=== PATIENT | female | born 1945 | race Caucasian/White ===

== ENCOUNTER 2016-11-19 18:08 | Inpatient (IN) | payer MEDICARE, MEDICAID ==
[~2016-11-19] VITALS: Ht 160 cm; Wt 60.0 kg
[~2016-11-19 18:08] MED LIST: CALC-112 PO; CARI350T14 PO; CHLO25TA PO; CLOR7.5T PO; DULO60CA7 PO; ENAL20TA PO; ESTR1TAB15 PO; FEXO180T5 PO; FLUT1DIS IH; GABA300C10 PO; HYDR-3144 PO; INTE30DI IM; LEVO25TA2 PO; LOVA40TA2 PO; METH5TAB2 PO; MODA200T12 PO; OMEP40CA6 PO; SOLI10TA PO; SUCR1TAB PO; TRAM50TA2 PO
[2016-11-19] MEDS ORDERED: MORPHINE SULFATE 4 MG/ML, 1ML IVPush PRN (18:30)
[2016-11-19] MEDS ORDERED: SODIUM CHLORIDE 0.9% 1,000ML IV ONE (18:30)
[2016-11-19] MEDS ORDERED: SODIUM CHLORIDE FLUSH 10ML SYR IVF ONE (18:30)
[2016-11-19] MEDS ORDERED: ONDANSETRON 2MG/ML, 2ML IVPush ONE (18:30)
[2016-11-19 18:46] LABS: HEMOGLOBIN 9.4 g/dL (11.7-16.4)
[2016-11-19] MEDS ORDERED: ONDANSETRON 2MG/ML, 2ML ONE (18:51)
[2016-11-19] MEDS ORDERED: MORPHINE SULFATE 4 MG/ML, 1ML ONE ×2 (18:51→19:51)
[2016-11-19 18:55] LABS: ASPARTATE AMINO TRANSFERASE 14 U/L (15-37); BLOOD UREA NITROGEN 25 mg/dL (7-18)
[2016-11-19] MEDS ORDERED: HYDROmorphone 1 MG/ML, 1ML ONE (19:58)
[2016-11-19] MEDS ORDERED: CEFTRIAXONE PMX 1GM/50ML 50 ML ONE (20:29)
[2016-11-19] MEDS ORDERED: HYDROmorphone 1 MG/ML, 1ML IVPush PRN ×2 (20:30→21:00)
[2016-11-19] MEDS ORDERED: CEFTRIAXONE PMX 1GM/50ML 50 ML IVPB ONE (20:30)
[2016-11-19] MEDS ORDERED: SODIUM CHLORIDE FLUSH 10ML SYR IVF PRN (21:00)
[2016-11-19] MEDS ORDERED: ONDANSETRON 2MG/ML, 2ML IVPush PRN (21:00)
[2016-11-19] MEDS ORDERED: ACETAMINOPHEN 325 MG TABLET PO PRN (22:00)
[2016-11-19] MEDS ORDERED: ONDANSETRON 2MG/ML, 2ML IVP PRN (22:00)
[2016-11-19] MEDS: CEFTRIAXONE PMX 1GM/50ML 50 ML IV SCH (22:00)
[2016-11-19] MEDS: SODIUM CHLORIDE 0.9% 1,000 ML IV SCH (23:01)
[2016-11-20] MEDS: MORPHINE SULFATE 4 MG/ML, 1ML IVPush PRN ×4 (00:32→14:19)
[2016-11-20 02:29] LABS: HEMOGLOBIN 9.3 g/dL (11.7-16.4)
[2016-11-20 04:22] VITALS: BP 147/47
[2016-11-20] MEDS: LEVOTHYROXINE 25 MCG TABLET PO SCH (05:43)
[2016-11-20] MEDS: CALCIUM/VITAMIN D3 250-125 TABLET PO SCH ×4 (05:43→21:16)
[2016-11-20] MEDS: SUCRALFATE 1 GM TABLET PO SCH ×4 (05:43→21:16)
[2016-11-20 06:07] LABS: HEMOGLOBIN 9.3 g/dL (11.7-16.4)
[2016-11-20 06:27] LABS: ASPARTATE AMINO TRANSFERASE 14 U/L (15-37); BLOOD UREA NITROGEN 19 mg/dL (7-18)
[2016-11-20 08:18] VITALS: BP 137/90
[2016-11-20 08:18] LABS: HEMOGLOBIN 9.8 g/dL (11.7-16.4)
[2016-11-20] MEDS: CLORAZEPATE 7.5 MG TABLET PO SCH ×2 (09:00→21:00)
[2016-11-20] MEDS: FLUTICASONE/VILANTEROL 100-25MCG/INH INH SCH (09:00)
[2016-11-20] MEDS: MODAFINIL 100 MG TABLET PO SCH (09:00)
[2016-11-20] MEDS: METHADONE 5 MG TABLET PO SCH ×3 (09:00→21:00)
[2016-11-20] MEDS: CARISOPRODOL 350 MG TABLET PO SCH (09:00)
[2016-11-20] MEDS: DULOXETINE 30 MG CAPSULE.DR PO SCH (09:00)
[2016-11-20] MEDS: ENALAPRIL 20MG TABLET PO SCH (09:00)
[2016-11-20] MEDS: ESTRADIOL 1 MG TABLET PO SCH (09:00)
[2016-11-20] MEDS: GABAPENTIN 300 MG CAPSULE PO SCH ×3 (09:00→21:16)
[2016-11-20] MEDS: OMEPRAZOLE 20 MG CAPSULE.DR PO SCH (09:00)
[2016-11-20 14:33] LABS: HEMOGLOBIN 9.9 g/dL (11.7-16.4)
[2016-11-20 15:38] VITALS: BP 143/72
[2016-11-20] MEDS ORDERED: FENT-58 TD (16:28)
[2016-11-20] MEDS ORDERED: SPIR25TA3 PO (16:46)
[2016-11-20] MEDS ORDERED: DALF10TA PO (16:46)
[2016-11-20] MEDS ORDERED: TRAZ50TA18 PO (16:46)
[2016-11-20] MEDS ORDERED: LORA0.5T PO (16:46)
[2016-11-20] MEDS: SODIUM CHLORIDE 0.9% 1,000 ML IV SCH (17:34)
[2016-11-20] MEDS ORDERED: SPIRONOLACTONE 25 MG TABLET PO PRN (18:00)
[2016-11-20] MEDS: FENTANYL REMOVE PATCH NOTE XX SCH (18:30)
[2016-11-20 20:29] VITALS: BP 114/65
[2016-11-20] MEDS: FENTANYL 50 MCG PATCH TD SCH (21:13)
[2016-11-20] MEDS: CEFTRIAXONE PMX 1GM/50ML 50 ML IV SCH (21:16)
[2016-11-20] MEDS: LOVASTATIN 40 MG TABLET PO SCH (21:16)
[2016-11-20] MEDS: TRAZODONE 50MG TABLET PO PRN (21:16)
[2016-11-20] MEDS ORDERED: LORazepam 1MG TABLET PO ONE (23:30)
[2016-11-21 02:00] VITALS: BP 133/75
[2016-11-21 03:30] VITALS: BP 131/81
[2016-11-21] MEDS: SUCRALFATE 1 GM TABLET PO SCH ×4 (05:23→22:24)
[2016-11-21] MEDS: LEVOTHYROXINE 25 MCG TABLET PO SCH (05:23)
[2016-11-21] MEDS: CALCIUM/VITAMIN D3 250-125 TABLET PO SCH ×4 (05:43→22:24)
[2016-11-21 05:50] LABS: HEMOGLOBIN 8.9 g/dL (11.7-16.4)
[2016-11-21 06:49] VITALS: BP 123/77
[2016-11-21] MEDS: MODAFINIL 100 MG TABLET PO SCH (09:52)
[2016-11-21] MEDS: DULOXETINE 30 MG CAPSULE.DR PO SCH (09:52)
[2016-11-21] MEDS: FLUTICASONE/VILANTEROL 100-25MCG/INH INH SCH (09:52)
[2016-11-21] MEDS: ESTRADIOL 1 MG TABLET PO SCH (09:52)
[2016-11-21] MEDS: METHADONE 5 MG TABLET PO SCH ×3 (09:52→22:28)
[2016-11-21] MEDS: GABAPENTIN 300 MG CAPSULE PO SCH ×3 (09:52→22:25)
[2016-11-21] MEDS: OMEPRAZOLE 20 MG CAPSULE.DR PO SCH (09:52)
[2016-11-21] MEDS: ENALAPRIL 20MG TABLET PO SCH (09:53)
[2016-11-21] MEDS: CARISOPRODOL 350 MG TABLET PO SCH (09:53)
[2016-11-21] MEDS: CLORAZEPATE 7.5 MG TABLET PO SCH ×2 (09:53→21:00)
[2016-11-21] MEDS ORDERED: PROPOFOL 10 MG/ML, 20ML ONE (10:36)
[2016-11-21] MEDS ORDERED: DEXAMETHASONE 4 MG/ML, 1ML ONE (10:36)
[2016-11-21] MEDS ORDERED: ONDANSETRON 2MG/ML, 2ML ONE (10:36)
[2016-11-21 13:29] VITALS: BP 112/67
[2016-11-21] MEDS: SODIUM CHLORIDE 0.9% 1,000 ML IV SCH ×2 (13:40→22:24)
[2016-11-21] MEDS ORDERED: FENTANYL PF 250 MCG/5ML ONE (15:21)
[2016-11-21] MEDS ORDERED: MIDAZOLAM 1 MG/ML, 2ML ONE (15:21)
[2016-11-21] MEDS ORDERED: ONDANSETRON 2MG/ML, 2ML IVPush PRN (16:30)
[2016-11-21] MEDS ORDERED: HYDROmorphone 1 MG/ML, 1ML IV PRN (16:30)
[2016-11-21] MEDS ORDERED: ALBUTEROL SULFATE 2.5 MG/3 ML NPPB PRN (16:30)
[2016-11-21] MEDS ORDERED: MIDAZOLAM 1 MG/ML, 2ML IV PRN (16:30)
[2016-11-21] MEDS ORDERED: LABETALOL 5MG/ML, 20ML IV PRN (16:30)
[2016-11-21] MEDS ORDERED: METOPROLOL 1 MG/ML, 5ML IV PRN (16:30)
[2016-11-21] MEDS ORDERED: OXYcodone 5 MG/5 ML ORAL.SOL UDC PO PRN (16:30)
[2016-11-21] MEDS ORDERED: hydrALAzine 20 MG/ML, 1ML IV PRN (16:30)
[2016-11-21] MEDS ORDERED: ACETAMINOPHEN 325 MG TABLET PO PRN (16:30)
[2016-11-21] MEDS ORDERED: EPHEDRINE 50 MG/ML, 1ML IVPush PRN (16:30)
[2016-11-21] MEDS ORDERED: FENTANYL PF 100 MCG/2ML IV PRN (16:30)
[2016-11-21] MEDS ORDERED: OXYcodone 5 MG/5 ML ORAL.SOL UDC ONE (16:47)
[2016-11-21 18:34] VITALS: BP 139/75
[2016-11-21] MEDS: HYDROcodone/APAP 5/325 TABLET PO PRN ×2 (22:23→23:50)
[2016-11-21] MEDS: CEFTRIAXONE PMX 1GM/50ML 50 ML IV SCH (22:24)
[2016-11-21] MEDS: LOVASTATIN 40 MG TABLET PO SCH (22:24)
[2016-11-21] MEDS: TRAZODONE 50MG TABLET PO PRN (23:09)
[2016-11-22 00:25] VITALS: BP 112/63
[2016-11-22 03:40] VITALS: BP 116/59
[2016-11-22] MEDS: LEVOTHYROXINE 25 MCG TABLET PO SCH (05:33)
[2016-11-22] MEDS: CALCIUM/VITAMIN D3 250-125 TABLET PO SCH ×4 (05:33→20:25)
[2016-11-22] MEDS: SUCRALFATE 1 GM TABLET PO SCH ×4 (05:33→20:25)
[2016-11-22] MEDS: HYDROcodone/APAP 5/325 TABLET PO PRN ×4 (05:39→22:26)
[2016-11-22 06:13] LABS: BLOOD UREA NITROGEN 12 mg/dL (7-18)
[2016-11-22 08:06] LABS: ANISOCYTOSIS 1+; HYPOCHROMIA 1+; MICROCYTOSIS 1+; POIKILOCYTOSIS 1+
[2016-11-22 08:48] VITALS: BP 116/67
[2016-11-22] MEDS: MODAFINIL 100 MG TABLET PO SCH (08:51)
[2016-11-22] MEDS: GABAPENTIN 300 MG CAPSULE PO SCH ×3 (08:51→20:25)
[2016-11-22] MEDS: FLUTICASONE/VILANTEROL 100-25MCG/INH INH SCH (08:51)
[2016-11-22] MEDS: CARISOPRODOL 350 MG TABLET PO SCH (08:52)
[2016-11-22] MEDS: OMEPRAZOLE 20 MG CAPSULE.DR PO SCH (08:52)
[2016-11-22] MEDS: ENALAPRIL 20MG TABLET PO SCH (08:52)
[2016-11-22] MEDS: ESTRADIOL 1 MG TABLET PO SCH (08:52)
[2016-11-22] MEDS: DULOXETINE 30 MG CAPSULE.DR PO SCH (08:52)
[2016-11-22] MEDS: CLORAZEPATE 7.5 MG TABLET PO SCH ×2 (08:53→20:23)
[2016-11-22] MEDS: METHADONE 5 MG TABLET PO SCH ×2 (08:54→16:00)
[2016-11-22 14:30] VITALS: BP 105/66
[2016-11-22 19:24] VITALS: BP 112/64
[2016-11-22] MEDS: ONDANSETRON ODT 4 MG PO PRN (20:25)
[2016-11-22] MEDS: LOVASTATIN 40 MG TABLET PO SCH (20:25)
[2016-11-22] MEDS: CEFTRIAXONE PMX 1GM/50ML 50 ML IV SCH (22:26)
[2016-11-22] MEDS: TRAZODONE 50MG TABLET PO PRN (22:53)
[2016-11-23] MEDS: HYDROcodone/APAP 5/325 TABLET PO PRN ×5 (02:31→20:11)
[2016-11-23 02:34] VITALS: BP 108/66
[2016-11-23] MEDS: ONDANSETRON ODT 4 MG PO PRN (03:24)
[2016-11-23] MEDS: SUCRALFATE 1 GM TABLET PO SCH ×4 (05:19→20:11)
[2016-11-23] MEDS: LEVOTHYROXINE 25 MCG TABLET PO SCH (05:19)
[2016-11-23] MEDS: CALCIUM/VITAMIN D3 250-125 TABLET PO SCH ×4 (05:19→20:12)
[2016-11-23 05:52] LABS: BLOOD UREA NITROGEN 18 mg/dL (7-18)
[2016-11-23 08:10] VITALS: BP 104/67
[2016-11-23] MEDS: SODIUM CHLORIDE 0.9% 1,000 ML IV SCH (08:21)
[2016-11-23] MEDS: FLUTICASONE/VILANTEROL 100-25MCG/INH INH SCH (08:21)
[2016-11-23] MEDS: CLORAZEPATE 7.5 MG TABLET PO SCH ×2 (08:23→20:12)
[2016-11-23] MEDS: CARISOPRODOL 350 MG TABLET PO SCH (08:24)
[2016-11-23] MEDS: ENALAPRIL 20MG TABLET PO SCH (08:24)
[2016-11-23] MEDS: ESTRADIOL 1 MG TABLET PO SCH (08:25)
[2016-11-23] MEDS: DULOXETINE 30 MG CAPSULE.DR PO SCH (08:25)
[2016-11-23] MEDS: GABAPENTIN 300 MG CAPSULE PO SCH ×3 (08:25→20:11)
[2016-11-23] MEDS: OMEPRAZOLE 20 MG CAPSULE.DR PO SCH (08:25)
[2016-11-23] MEDS: MODAFINIL 100 MG TABLET PO SCH (08:25)
[2016-11-23 14:15] VITALS: BP 95/64
[2016-11-23] MEDS ORDERED: CEFD300C2 PO (15:19)
[2016-11-23] MEDS: FENTANYL REMOVE PATCH NOTE XX SCH (18:29)
[2016-11-23] MEDS: FENTANYL 50 MCG PATCH TD SCH (18:29)
[2016-11-23] MEDS: CEFDINIR 300 MG CAPSULE PO SCH (20:11)
[2016-11-23] MEDS: LOVASTATIN 40 MG TABLET PO SCH (20:11)
[2016-11-23 20:28] VITALS: BP 95/61
[2016-11-23] MEDS: TRAZODONE 50MG TABLET PO PRN (21:42)
[2016-11-24 03:31] VITALS: BP 125/72
[2016-11-24] MEDS: SODIUM CHLORIDE 0.9% 1,000 ML IV SCH (04:27)
[2016-11-24] MEDS: CALCIUM/VITAMIN D3 250-125 TABLET PO SCH ×4 (05:53→21:49)
[2016-11-24] MEDS: SUCRALFATE 1 GM TABLET PO SCH ×4 (05:54→21:49)
[2016-11-24] MEDS: LEVOTHYROXINE 25 MCG TABLET PO SCH (05:54)
[2016-11-24 06:34] VITALS: BP 126/71
[2016-11-24] MEDS: HYDROcodone/APAP 5/325 TABLET PO PRN ×2 (07:42→14:24)
[2016-11-24] MEDS: FLUTICASONE/VILANTEROL 100-25MCG/INH INH SCH (09:00)
[2016-11-24] MEDS: CLORAZEPATE 7.5 MG TABLET PO SCH ×2 (09:00→20:57)
[2016-11-24] MEDS: MODAFINIL 100 MG TABLET PO SCH (09:00)
[2016-11-24] MEDS: ENALAPRIL 20MG TABLET PO SCH (09:20)
[2016-11-24] MEDS: OMEPRAZOLE 20 MG CAPSULE.DR PO SCH (09:20)
[2016-11-24] MEDS: GABAPENTIN 300 MG CAPSULE PO SCH ×3 (09:20→21:49)
[2016-11-24] MEDS: CARISOPRODOL 350 MG TABLET PO SCH (09:20)
[2016-11-24] MEDS: DULOXETINE 30 MG CAPSULE.DR PO SCH (09:20)
[2016-11-24] MEDS: ESTRADIOL 1 MG TABLET PO SCH (09:20)
[2016-11-24] MEDS: CEFDINIR 300 MG CAPSULE PO SCH ×2 (09:20→21:49)
[2016-11-24 12:57] VITALS: BP 108/67
[2016-11-24] MEDS: metroNIDAZOLE 500 MG TABLET PO SCH ×3 (14:23→21:49)
[2016-11-24 19:06] VITALS: BP 95/59
[2016-11-24] MEDS: LOVASTATIN 40 MG TABLET PO SCH (21:49)
[2016-11-24] MEDS: TRAZODONE 50MG TABLET PO PRN (21:49)
[2016-11-25] MEDS: SODIUM CHLORIDE 0.9% 1,000 ML IV SCH ×2 (01:00→21:00)
[2016-11-25 02:27] VITALS: BP 96/56
[2016-11-25] MEDS: HYDROcodone/APAP 5/325 TABLET PO PRN ×5 (02:36→21:36)
[2016-11-25] MEDS: LEVOTHYROXINE 25 MCG TABLET PO SCH (05:22)
[2016-11-25] MEDS: CALCIUM/VITAMIN D3 250-125 TABLET PO SCH ×4 (05:22→20:04)
[2016-11-25] MEDS: SUCRALFATE 1 GM TABLET PO SCH ×4 (05:22→20:04)
[2016-11-25 07:43] VITALS: BP 101/62
[2016-11-25] MEDS: OMEPRAZOLE 20 MG CAPSULE.DR PO SCH (09:00)
[2016-11-25] MEDS: ENALAPRIL 20MG TABLET PO SCH (09:00)
[2016-11-25] MEDS: CLORAZEPATE 7.5 MG TABLET PO SCH ×2 (09:00→21:00)
[2016-11-25] MEDS: CEFDINIR 300 MG CAPSULE PO SCH ×2 (09:00→20:04)
[2016-11-25] MEDS: MODAFINIL 100 MG TABLET PO SCH (09:00)
[2016-11-25] MEDS: DULOXETINE 30 MG CAPSULE.DR PO SCH (09:53)
[2016-11-25] MEDS: GABAPENTIN 300 MG CAPSULE PO SCH ×3 (09:53→20:04)
[2016-11-25] MEDS: LACTOBACILLUS CHEW TABLET PO SCH ×3 (09:54→20:04)
[2016-11-25] MEDS: ESTRADIOL 1 MG TABLET PO SCH (09:54)
[2016-11-25] MEDS: metroNIDAZOLE 500 MG TABLET PO SCH ×3 (09:54→20:04)
[2016-11-25] MEDS: CARISOPRODOL 350 MG TABLET PO SCH (09:55)
[2016-11-25] MEDS: FLUTICASONE/VILANTEROL 100-25MCG/INH INH SCH (11:53)
[2016-11-25 12:46] VITALS: BP 95/61
[2016-11-25 19:30] VITALS: BP 110/69
[2016-11-25] MEDS: LOVASTATIN 40 MG TABLET PO SCH (20:04)
[2016-11-25] MEDS: TRAZODONE 50MG TABLET PO PRN (20:04)
[2016-11-26] MEDS: HYDROcodone/APAP 5/325 TABLET PO PRN ×5 (01:49→20:13)
[2016-11-26 03:15] VITALS: BP 108/68
[2016-11-26] MEDS: LEVOTHYROXINE 25 MCG TABLET PO SCH (06:08)
[2016-11-26] MEDS: CALCIUM/VITAMIN D3 250-125 TABLET PO SCH ×4 (06:08→20:13)
[2016-11-26] MEDS: SUCRALFATE 1 GM TABLET PO SCH ×4 (06:08→20:12)
[2016-11-26 07:50] VITALS: BP 108/68
[2016-11-26] MEDS: metroNIDAZOLE 500 MG TABLET PO SCH ×3 (08:41→20:12)
[2016-11-26] MEDS: GABAPENTIN 300 MG CAPSULE PO SCH ×3 (08:41→20:12)
[2016-11-26] MEDS: CEFDINIR 300 MG CAPSULE PO SCH (08:41)
[2016-11-26] MEDS: LACTOBACILLUS CHEW TABLET PO SCH ×3 (08:41→20:14)
[2016-11-26] MEDS: ESTRADIOL 1 MG TABLET PO SCH (08:41)
[2016-11-26] MEDS: DULOXETINE 30 MG CAPSULE.DR PO SCH (08:41)
[2016-11-26] MEDS: CARISOPRODOL 350 MG TABLET PO SCH (08:42)
[2016-11-26] MEDS: MODAFINIL 100 MG TABLET PO SCH (08:42)
[2016-11-26] MEDS: ENALAPRIL 20MG TABLET PO SCH (08:42)
[2016-11-26] MEDS: CLORAZEPATE 7.5 MG TABLET PO SCH (08:43)
[2016-11-26] MEDS: FLUTICASONE/VILANTEROL 100-25MCG/INH INH SCH (08:43)
[2016-11-26 12:44] LABS: BLOOD UREA NITROGEN 17 mg/dL (7-18)
[2016-11-26 15:16] VITALS: BP 110/68
[2016-11-26] MEDS: SODIUM CHLORIDE 0.9% 1,000 ML IV SCH (16:17)
[2016-11-26] MEDS: FENTANYL REMOVE PATCH NOTE XX SCH (18:10)
[2016-11-26] MEDS: FENTANYL 50 MCG PATCH TD SCH (18:10)
[2016-11-26 19:05] VITALS: BP 124/77
[2016-11-26] MEDS: LOVASTATIN 40 MG TABLET PO SCH (20:12)
[2016-11-26] MEDS ORDERED: CEFDINIR 300 MG CAPSULE PO SCH (21:00)
[2016-11-27] MEDS: HYDROcodone/APAP 5/325 TABLET PO PRN ×5 (01:10→18:34)
[2016-11-27 02:37] VITALS: BP 137/83
[2016-11-27 02:39] VITALS: BP 137/83
[2016-11-27] MEDS: CALCIUM/VITAMIN D3 250-125 TABLET PO SCH ×3 (05:46→18:35)
[2016-11-27] MEDS: SUCRALFATE 1 GM TABLET PO SCH ×3 (05:46→18:35)
[2016-11-27] MEDS: LEVOTHYROXINE 25 MCG TABLET PO SCH (05:46)
[2016-11-27 06:43] VITALS: BP 123/73
[2016-11-27] MEDS: FLUTICASONE/VILANTEROL 100-25MCG/INH INH SCH (09:53)
[2016-11-27] MEDS: DULOXETINE 30 MG CAPSULE.DR PO SCH (09:55)
[2016-11-27] MEDS: ESTRADIOL 1 MG TABLET PO SCH (09:56)
[2016-11-27] MEDS: LACTOBACILLUS CHEW TABLET PO SCH ×2 (09:56→18:35)
[2016-11-27] MEDS: metroNIDAZOLE 500 MG TABLET PO SCH ×2 (09:56→18:35)
[2016-11-27] MEDS: GABAPENTIN 300 MG CAPSULE PO SCH ×2 (09:57→18:35)
[2016-11-27] MEDS: MODAFINIL 100 MG TABLET PO SCH (09:57)
[2016-11-27] MEDS: CARISOPRODOL 350 MG TABLET PO SCH (09:58)
[2016-11-27] MEDS: ENALAPRIL 20MG TABLET PO SCH (09:59)
[2016-11-27] MEDS ORDERED: ACID1TAB7 PO (12:02)
[2016-11-27] MEDS ORDERED: METR500T PO (12:02)
[2016-11-27] MEDS: SODIUM CHLORIDE 0.9% 1,000 ML IV SCH (13:00)
[2016-11-27] MEDS ORDERED: INTERFERON BETA 30 MCG IM ONE (14:30)
== END 2016-11-27 20:38 | DRG 690 ==
LOC: ED 20:02 → EDIP 20:53 → 3NE 11-20 → ORIP 11-21 16:21 → 4NOR 11-21 18:05
PROVIDERS: ADMIT Internal Medicine; ATTEND Internal Medicine
PROC: 0T9B70Z Drainage of Bladder with Drainage Device, Via Natural or Artificial Opening (ICD-10-PCS; principal; 2016-11-19)
PROC: 0TCB8ZZ Extirpation of Matter from Bladder, Via Natural or Artificial Opening Endoscopic (ICD-10-PCS; 2016-11-21)
DX: N30.01 Acute cystitis with hematuria (principal); A04.7 Enterocolitis due to Clostridium difficile; E87.1 Hypo-osmolality and hyponatremia; D62 Acute posthemorrhagic anemia; R10.2 Pelvic and perineal pain; E03.9 Hypothyroidism, unspecified; F41.9 Anxiety disorder, unspecified; G35 Multiple sclerosis; G89.29 Other chronic pain; I10 Essential (primary) hypertension; K21.9 Gastro-esophageal reflux disease without esophagitis; K44.9 Diaphragmatic hernia without obstruction or gangrene; K58.9 Irritable bowel syndrome, unspecified; N31.9 Neuromuscular dysfunction of bladder, unspecified; N32.89 Other specified disorders of bladder; Z82.3 Family history of stroke; Z87.440 Personal history of urinary (tract) infections; Z87.891 Personal history of nicotine dependence; Z90.49 Acquired absence of other specified parts of digestive tract; Z90.710 Acquired absence of both cervix and uterus; Z88.0 Allergy status to penicillin; Z88.1 Allergy status to other antibiotic agents; Z88.8 Allergy status to other drugs, medicaments and biological substances
CPT/HCPCS: 36415; 51702; 74176; 80048; 80053; 81001; 82040; 85014; 85018; 85025; 85610; 87086; 87324; 93005; 96361; 96365; 96366; 96375; J0696; J1100; J1170; J2250; J2405; J2704; J3010; Q0162

== ENCOUNTER 2019-02-01 11:44 | Inpatient (IN) | payer MEDICARE, MEDICAID ==
[~2019-02-01] VITALS: Ht 160 cm; Wt 54.9 kg
[~2019-02-01 11:44] MED LIST changes: +ACID1TAB7 PO; +CEFD300C37 PO; +DALF10TA PO; +FENT-58 TD; +FEXO180T15 PO; -FEXO180T5 PO; -HYDR-3144 PO; +HYDR-3245 PO; +LORA0.5T PO; +METR500T PO; -MODA200T12 PO; +MODA200T27 PO; -SOLI10TA PO; +SOLI10TA2 PO; +SPIR25TA5 PO; +TRAZ50TA66 PO
--- NOTE | 2019-02-01 12:28 | NUR ---
OFF FLOOR TO RADIOLOGY
[2019-02-01] MEDS ORDERED: DIPH,PERTUSS(ACELL),TET VAC/PF 0.5 ML IM-VACC ONE ×2 (12:30→13:06)
[2019-02-01] MEDS ORDERED: SODIUM CHLORIDE FLUSH 10ML SYR IVF ONE (12:30)
[2019-02-01] MEDS ORDERED: BACITRACIN ZINC OINT 500U/GM, 0.9 GM ONE (12:52)
[2019-02-01 13:15] LABS: MEAN CORPUSCULAR HEMOGLOBIN 24.1 pg (27.0-34.8); MEAN CORPUSCULAR HGB CONC 31.6 g/dL (32.4-35.8); MEAN CORPUSCULAR VOLUME 76.4 fL (80-100); MEAN PLATELET VOLUME 7.7 fL (7.4-10.4); PLATELET COUNT 563 x10^3/uL (130-400); RED CELL DISTRIBUTION WIDTH 25.1 % (9.6-15.2)
[2019-02-01 13:20] LABS: ALBUMIN 3.5 g/dL (3.4-5.0); ANION GAP 8 mmol/L (5-15); CALCIUM 8.9 mg/dL (8.5-10.1); CHLORIDE 111 mmol/L (98-107)
[2019-02-01 13:24] LABS: ALANINE AMINOTRANSFERASE 50 U/L (12-78); ALKALINE PHOSPHATASE 108 U/L (45-117); BILIRUBIN,TOTAL 0.2 mg/dL (0.2-1.0); CREATININE 0.77 mg/dL (0.55-1.02); TOTAL PROTEIN 7.9 g/dL (6.4-8.2)
[2019-02-01 13:31] LABS: MD YES
[2019-02-01 13:33] LABS: LYMPH#(MANUAL) 1.62 x10^3/uL (1-3.4); LYMPHS% (MANUAL) 30 % (22-44); MONOS#(MANUAL) 0.27 x10^3/uL (0.3-2.7); MONOS% (MANUAL) 5 % (2-9); SEG#(MANUAL) 3.51 x10^3/uL (1.8-6.8); SEGS% (MANUAL) 65 % (42-75)
[2019-02-01 13:34] LABS: ANISOCYTOSIS 2+
[2019-02-01 13:35] LABS: HYPOCHROMIA 2+; MICROCYTOSIS 1+; OVALOCYTES 1+; POLYCHROMASIA 1+
[2019-02-01 13:36] LABS: <PLATELET ESTIMATE> INCREASED; <PLT MORPHOLOGY> NORMAL PLT MORPH; TEAR DROPS 1+
--- NOTE | 2019-02-01 13:42 | NUR ---
STRAIGHT CATH URINE SAMPLE OBTAINED. PT THEN ON PHONE LEAVING MESSAGE WITH SON. PT HAD BEEN CONVERSING WITH RN. THEN PT SAID "HERE COME THE SHAKES" AND THEN STARING OUT, NOT RESPONSIVE VERBALLY. MD BROUGHT TO BEDSIDE AND PT STILL EXPERIENCING THE EPISODE AT THIS TIME. THEN PT AGAIN BECAME RESPONSIVE, TALKING TO STAFF. TECH AT BESIDE DRESSING BILATERAL ARM WOUNDS.
[2019-02-01 13:58] LABS: CULTURE INDICATED? YES; MICROSCOPIC INDICATED
[2019-02-01] MEDS ORDERED: CEFTRIAXONE PMX 1GM/50ML 50 ML IV ONE (15:00)
[2019-02-01] MEDS ORDERED: SODIUM CHLORIDE FLUSH 10ML SYR IVF PRN (15:00)
--- NOTE | 2019-02-01 15:00 | NUR ---
hospitalist at bedside examining pt.
[2019-02-01] MEDS ORDERED: LORazepam 0.5MG TABLET PO PRN (15:30)
[2019-02-01] MEDS ORDERED: TRAZODONE 50MG TABLET PO PRN (15:30)
[2019-02-01] MEDS ORDERED: ONDANSETRON ODT 4 MG PO PRN (15:30)
[2019-02-01] MEDS ORDERED: ONDANSETRON 2MG/ML, 2ML IVPush PRN (15:30)
[2019-02-01] MEDS ORDERED: LABETALOL 5 MG/ML SYRINGE IVPush PRN (15:30)
[2019-02-01 16:01] LABS: FREE T4 (FREE THYROXINE) 0.97 ng/dL (0.76-1.46)
[2019-02-01] MEDS ORDERED: CEFTRIAXONE PMX 1GM/50ML 50 ML ONE (16:18)
--- NOTE | 2019-02-01 16:30 | NUR ---
REPORT TO AUGUSTA STERLING. PT TO BE TRANSPORTED VIA [facility] ON MONITOR TO FLOOR
[2019-02-01 17:30] VITALS: BP 161/79
[2019-02-01] MEDS: GABAPENTIN 300 MG CAPSULE PO SCH ×2 (18:42→22:06)
[2019-02-01] MEDS: SUCRALFATE 1 GM TABLET PO SCH ×2 (18:42→22:06)
[2019-02-01] MEDS: HYDROcodone/APAP 10/325 MG TABLET PO SCH ×2 (18:42→22:07)
[2019-02-01] MEDS: ENOXAPARIN 40 MG/0.4 ML SQ SCH (18:42)
[2019-02-01 18:52] VITALS: BP 155/75
[2019-02-01] MEDS: DEXTROSE 50%, 50ML SYRINGE IVPush PRN ×2 (20:30→20:40)
[2019-02-01] MEDS ORDERED: GLUCAGON 1 MG IM PRN (20:30)
[2019-02-01] MEDS ORDERED: DEXTROSE 4 GM TAB.CHEW PO PRN (20:30)
[2019-02-01] MEDS ORDERED: D5%-0.9% NACL 1,000 ML IV ONE (20:30)
[2019-02-01] MEDS ORDERED: DEXTROSE 50%, 50ML SYRINGE IVPush ONE (20:30)
[2019-02-01] MEDS: CEFTRIAXONE PMX 1GM/50ML 50 ML IV SCH (22:00)
[2019-02-01] MEDS: CLORAZEPATE 7.5 MG TABLET PO SCH (22:06)
[2019-02-01] MEDS: SODIUM CHLORIDE FLUSH 10ML SYR IVF SCH (22:06)
[2019-02-01] MEDS: LOVASTATIN 40 MG TABLET PO SCH (22:07)
[2019-02-01] MEDS ORDERED: FENTANYL 50 MCG PATCH TD PRN (23:30)
[2019-02-02 00:48] VITALS: BP 97/57
[2019-02-02 05:18] VITALS: BP 116/63
[2019-02-02 05:21] LABS: CHLORIDE 110 mmol/L (98-107)
[2019-02-02 05:25] LABS: MEAN CORPUSCULAR HEMOGLOBIN 24.6 pg (27.0-34.8); MEAN CORPUSCULAR HGB CONC 32.1 g/dL (32.4-35.8); MEAN CORPUSCULAR VOLUME 76.6 fL (80-100); MEAN PLATELET VOLUME 7.7 fL (7.4-10.4); PLATELET COUNT 445 x10^3/uL (130-400); RED BLOOD COUNT 3.88 x10^6/uL (3.82-5.3); RED CELL DISTRIBUTION WIDTH 25.1 % (9.6-15.2)
[2019-02-02] MEDS: SUCRALFATE 1 GM TABLET PO SCH ×4 (05:29→21:27)
[2019-02-02] MEDS: LEVOTHYROXINE 25 MCG TABLET PO SCH (05:29)
[2019-02-02] MEDS: HYDROcodone/APAP 10/325 MG TABLET PO SCH ×4 (05:29→22:07)
[2019-02-02 05:37] LABS: ALANINE AMINOTRANSFERASE 37 U/L (12-78); ALKALINE PHOSPHATASE 87 U/L (45-117); ANION GAP 6 mmol/L (5-15); CALCIUM 8.4 mg/dL (8.5-10.1); CREATININE 0.96 mg/dL (0.55-1.02); TOTAL PROTEIN 6.6 g/dL (6.4-8.2)
[2019-02-02 05:39] LABS: BILIRUBIN,TOTAL < 0.1 mg/dL (0.2-1.0)
[2019-02-02] MEDS: D5%-0.9% NACL 1,000 ML IV SCH ×2 (05:55→19:07)
[2019-02-02] MEDS ORDERED: DEXTROSE 50%, 50ML SYRINGE IVPush ONE (06:00)
[2019-02-02 06:26] LABS: MD YES
[2019-02-02 06:28] LABS: ANISOCYTOSIS 2+; BAND#(MANUAL) 0.05 x10^3/uL; BANDS%(MANUAL) 1 % (0-7); BASOS#(MANUAL) 0.05 x10^3/uL (0-0.1); BASOS% (MANUAL) 1 % (0-1); EOS#(MANUAL) 0.24 x10^3/uL (0.0-0.4); EOS% (MANUAL) 5 % (1-7); LYMPH#(MANUAL) 1.92 x10^3/uL (1-3.4); LYMPHS% (MANUAL) 40 % (22-44); MICROCYTOSIS 1+; MONOS#(MANUAL) 0.29 x10^3/uL (0.3-2.7); MONOS% (MANUAL) 6 % (2-9); SEG#(MANUAL) 2.26 x10^3/uL (1.8-6.8); SEGS% (MANUAL) 47 % (42-75)
[2019-02-02 06:29] LABS: <PLATELET ESTIMATE> INCREASED; <PLT MORPHOLOGY> NORMAL PLT MORPH; OVALOCYTES 1+; POLYCHROMASIA 1+; TEAR DROPS 1+
[2019-02-02 06:34] LABS: HYPOCHROMIA 1+
[2019-02-02] MEDS ORDERED: FENTANYL REMOVE PATCH NOTE XX SCH (09:00)
[2019-02-02] MEDS ORDERED: FENTANYL 50 MCG PATCH TD SCH (09:00)
[2019-02-02] MEDS: CLORAZEPATE 7.5 MG TABLET PO SCH ×2 (09:14→21:27)
[2019-02-02] MEDS: ESTRADIOL 1 MG TABLET PO SCH (09:14)
[2019-02-02] MEDS: ENALAPRIL 20MG TABLET PO SCH (09:14)
[2019-02-02] MEDS: SODIUM CHLORIDE FLUSH 10ML SYR IVF SCH ×2 (09:15→21:27)
[2019-02-02] MEDS: GABAPENTIN 300 MG CAPSULE PO SCH ×3 (09:15→21:27)
[2019-02-02 12:10] VITALS: BP 98/54
--- NOTE | 2019-02-02 12:44 | NUR ---
HARM REDUCTION WORKER recommend: PUREE/ THINS -up for all meals -straws ok -meds as tolerated -alternate solids/liquids Addendum: 02/02/19 at [address] Amended: Links added.
[2019-02-02 18:12] VITALS: BP 124/49
[2019-02-02] MEDS: ENOXAPARIN 40 MG/0.4 ML SQ SCH (18:24)
[2019-02-02 18:28] VITALS: BP 119/69
[2019-02-02 19:00] VITALS: BP 117/62
[2019-02-02] MEDS: LOVASTATIN 40 MG TABLET PO SCH (21:27)
[2019-02-02] MEDS: CEFTRIAXONE PMX 1GM/50ML 50 ML IV SCH (21:29)
[2019-02-03 00:24] VITALS: BP 137/69
[2019-02-03] MEDS: LEVOTHYROXINE 25 MCG TABLET PO SCH (05:42)
[2019-02-03] MEDS: HYDROcodone/APAP 10/325 MG TABLET PO SCH ×4 (05:43→22:16)
[2019-02-03] MEDS: SUCRALFATE 1 GM TABLET PO SCH ×4 (05:43→22:16)
[2019-02-03] MEDS ORDERED: LINEZOLID 600 MG TABLET PO SCH (08:30)
[2019-02-03] MEDS: CLORAZEPATE 7.5 MG TABLET PO SCH ×2 (09:02→22:16)
[2019-02-03] MEDS: ESTRADIOL 1 MG TABLET PO SCH (09:02)
[2019-02-03] MEDS: SODIUM CHLORIDE FLUSH 10ML SYR IVF SCH ×2 (09:02→22:16)
[2019-02-03] MEDS: GABAPENTIN 300 MG CAPSULE PO SCH ×3 (09:02→22:16)
[2019-02-03] MEDS: ENALAPRIL 20MG TABLET PO SCH (09:02)
[2019-02-03 09:20] VITALS: BP 154/70
[2019-02-03] MEDS ORDERED: LINE600T33 PO (12:43)
[2019-02-03 14:34] VITALS: BP 153/76
[2019-02-03] MEDS ORDERED: NITR100C PO (16:25)
[2019-02-03] MEDS ORDERED: FOSFOMYCIN 3 GM PACKET PO ONE (18:00)
[2019-02-03] MEDS: SENNA/DOCUSATE TABLET PO PRN (18:04)
[2019-02-03] MEDS: ENOXAPARIN 40 MG/0.4 ML SQ SCH (18:43)
[2019-02-03] MEDS ORDERED: NITROFURANTOIN 50 MG CAPSULE PO SCH (21:00)
[2019-02-03 21:13] VITALS: BP 163/82
[2019-02-03] MEDS: LOVASTATIN 40 MG TABLET PO SCH (22:16)
[2019-02-04 02:35] VITALS: BP 176/76
[2019-02-04] MEDS: HYDROcodone/APAP 10/325 MG TABLET PO SCH ×3 (06:22→16:23)
[2019-02-04] MEDS: LEVOTHYROXINE 25 MCG TABLET PO SCH (06:23)
[2019-02-04] MEDS: SUCRALFATE 1 GM TABLET PO SCH ×3 (06:23→16:13)
[2019-02-04 07:09] VITALS: BP 129/70
[2019-02-04] MEDS: CLORAZEPATE 7.5 MG TABLET PO SCH (10:00)
[2019-02-04] MEDS: GABAPENTIN 300 MG CAPSULE PO SCH ×2 (10:00→16:13)
[2019-02-04] MEDS: ENALAPRIL 20MG TABLET PO SCH (10:00)
[2019-02-04] MEDS: SODIUM CHLORIDE FLUSH 10ML SYR IVF SCH (10:00)
[2019-02-04] MEDS: ESTRADIOL 1 MG TABLET PO SCH (10:00)
[2019-02-04] MEDS: SENNA/DOCUSATE TABLET PO PRN (10:52)
[2019-02-04 14:06] VITALS: BP 121/81
== END 2019-02-04 16:27 | DRG 689 ==
LOC: ED 14:52 → 4EST 15:18
PROVIDERS: ADMIT Internal Medicine; ATTEND Internal Medicine
PROC: 0T9B70Z Drainage of Bladder with Drainage Device, Via Natural or Artificial Opening (ICD-10-PCS; principal; 2019-02-01)
DX: N39.0 Urinary tract infection, site not specified (principal); E43 Unspecified severe protein-calorie malnutrition; G46.0 Middle cerebral artery syndrome; J98.11 Atelectasis; G35 Multiple sclerosis; Z88.0 Allergy status to penicillin; Z88.8 Allergy status to other drugs, medicaments and biological substances; Z68.21 Body mass index [BMI] 21.0-21.9, adult; D64.9 Anemia, unspecified; E03.9 Hypothyroidism, unspecified; E11.649 Type 2 diabetes mellitus with hypoglycemia without coma; F41.0 Panic disorder [episodic paroxysmal anxiety]; G89.29 Other chronic pain; I10 Essential (primary) hypertension; K21.9 Gastro-esophageal reflux disease without esophagitis; K44.9 Diaphragmatic hernia without obstruction or gangrene; K58.9 Irritable bowel syndrome, unspecified; K64.9 Unspecified hemorrhoids; N31.9 Neuromuscular dysfunction of bladder, unspecified; R13.19 Other dysphagia; R29.6 Repeated falls; R62.7 Adult failure to thrive; S50.12XA Contusion of left forearm, initial encounter; W06.XXXA Fall from bed, initial encounter; Y93.89 Activity, other specified; Y92.89 Other specified places as the place of occurrence of the external cause; Y99.8 Other external cause status; S60.511A Abrasion of right hand, initial encounter; Z86.73 Personal history of transient ischemic attack (TIA), and cerebral infarction without residual deficits
CPT/HCPCS: 36415; 70450; 71045; 72190; 80053; 81001; 82962; 83735; 84100; 84439; 84443; 85025; 87040; 87077; 87086; 87186; 90471; 90715; 93005; G0378; J0696; J1650; J7042; 92523-GN

== ENCOUNTER 2019-04-09 18:49 | Inpatient (IN) | payer MEDICARE, MEDICAID ==
[~2019-04-09] VITALS: Ht 160 cm; Wt 60.6 kg
[2019-04-20 13:48] VITALS: BP 146/83
== END 2019-04-20 15:58 | disposition home health service (06) | DRG 854 ==
LOC: ED 20:52 → EDIP 21:25 → 3NE 22:08
PROVIDERS: ADMIT Family Medicine; ATTEND Family Medicine
PROC: 0F778DZ Dilation of Common Hepatic Duct with Intraluminal Device, Via Natural or Artificial Opening Endoscopic (ICD-10-PCS; principal; 2019-04-13)
PROC: 0F7D8DZ Dilation of Pancreatic Duct with Intraluminal Device, Via Natural or Artificial Opening Endoscopic (ICD-10-PCS; 2019-04-13)
PROC: BF111ZZ Fluoroscopy of Biliary and Pancreatic Ducts using Low Osmolar Contrast (ICD-10-PCS; 2019-04-13)
PROC: 0T5B8ZZ Destruction of Bladder, Via Natural or Artificial Opening Endoscopic (ICD-10-PCS; 2019-04-15)
PROC: 0FC98ZZ Extirpation of Matter from Common Bile Duct, Via Natural or Artificial Opening Endoscopic (ICD-10-PCS; 2019-04-15)
PROC: 0TCB8ZZ Extirpation of Matter from Bladder, Via Natural or Artificial Opening Endoscopic (ICD-10-PCS; 2019-04-15)
PROC: 30233N1 Transfusion of Nonautologous Red Blood Cells into Peripheral Vein, Percutaneous Approach (ICD-10-PCS; 2019-04-16)
PROC: 0FPB8DZ Removal of Intraluminal Device from Hepatobiliary Duct, Via Natural or Artificial Opening Endoscopic (ICD-10-PCS; 2019-04-17)
PROC: BF111ZZ Fluoroscopy of Biliary and Pancreatic Ducts using Low Osmolar Contrast (ICD-10-PCS; 2019-04-17)
DX: A41.9 Sepsis, unspecified organism (principal); E87.1 Hypo-osmolality and hyponatremia; J98.11 Atelectasis; N39.0 Urinary tract infection, site not specified; K22.10 Ulcer of esophagus without bleeding; K80.50 Calculus of bile duct without cholangitis or cholecystitis without obstruction; B96.4 Proteus (mirabilis) (morganii) as the cause of diseases classified elsewhere; Z88.0 Allergy status to penicillin; Z88.8 Allergy status to other drugs, medicaments and biological substances; D64.9 Anemia, unspecified; E03.9 Hypothyroidism, unspecified; E11.9 Type 2 diabetes mellitus without complications; F41.0 Panic disorder [episodic paroxysmal anxiety]; F41.1 Generalized anxiety disorder; G35 Multiple sclerosis; G89.29 Other chronic pain; I10 Essential (primary) hypertension; K21.9 Gastro-esophageal reflux disease without esophagitis; Z79.890 Hormone replacement therapy; Z82.3 Family history of stroke; Z86.73 Personal history of transient ischemic attack (TIA), and cerebral infarction without residual deficits; Z87.11 Personal history of peptic ulcer disease; Z87.891 Personal history of nicotine dependence; Z90.49 Acquired absence of other specified parts of digestive tract; Z90.710 Acquired absence of both cervix and uterus; Z98.42 Cataract extraction status, left eye; K58.9 Irritable bowel syndrome, unspecified
CPT/HCPCS: 36415; 74177; 74181; 74328; 80048; 80053; 80076; 81001; 82247; 82248; 83690; 84145; 84443; 85025; 86850; 86900; 86923; 87077; 87086; 87186; 93005; 94640; 96374; 96375; 99285; G0378; J0690; J0696; J1100; J2250; J2405; J2704; J2710; J3010; J7613; J7626; Q9967; C1769; C1894; C2625; J0330; J0360; J2060; J2270; J7030; P9016

== ENCOUNTER 2019-05-09 12:59 | Inpatient (IN) | payer MEDICARE, MEDICAID ==
[~2019-05-09] VITALS: Ht 157.5 cm; Wt 61.9 kg
[2019-05-13 13:11] VITALS: BP 154/83
== END 2019-05-13 17:26 | disposition home health service (06) | DRG 100 ==
LOC: ED 15:59 → EDIP 17:20 → 4WST 18:30
PROVIDERS: ADMIT Hospitalist; ATTEND Hospitalist
DX: G40.89 Other seizures (principal); E43 Unspecified severe protein-calorie malnutrition; E87.1 Hypo-osmolality and hyponatremia; G35 Multiple sclerosis; D63.8 Anemia in other chronic diseases classified elsewhere; E03.9 Hypothyroidism, unspecified; E11.9 Type 2 diabetes mellitus without complications; K64.9 Unspecified hemorrhoids; K58.9 Irritable bowel syndrome, unspecified; K44.9 Diaphragmatic hernia without obstruction or gangrene; K21.9 Gastro-esophageal reflux disease without esophagitis; N31.9 Neuromuscular dysfunction of bladder, unspecified; E86.0 Dehydration; E87.6 Hypokalemia; F41.0 Panic disorder [episodic paroxysmal anxiety]; G89.29 Other chronic pain; Z60.2 Problems related to living alone; I10 Essential (primary) hypertension; Z82.3 Family history of stroke; Z79.899 Other long term (current) drug therapy; Z90.710 Acquired absence of both cervix and uterus; Z86.73 Personal history of transient ischemic attack (TIA), and cerebral infarction without residual deficits; Z98.42 Cataract extraction status, left eye; Z90.49 Acquired absence of other specified parts of digestive tract
CPT/HCPCS: 36415; 70450; 70551; 80048; 81001; 82040; 83735; 84100; 84443; 85025; 87086; 93005; 95816; 96365; 96375; 99285; G0378; J0696; J1650; J1953; J2405; J0360; J2060; J3475; J7030